=== PATIENT | female | born 1985 | race Caucasian/White ===

== ENCOUNTER 2016-08-23 07:16 | Day surgery (SDC) | payer BC, MEDICAID ==
[2016-08-23] VITALS (14 sets, daily range): BP systolic 90–120; BP diastolic 52–81; PULSE 74–106; RESP 15–20; Ht 172.7 cm; Wt 81.3 kg
[~2016-08-23] VITALS: Ht 172.7 cm; Wt 81.3 kg
[~2016-08-23 07:16] MED LIST: CLINDAMYCIN 600 MG/50 ML D5W IVPB IVPB ONE
--- NOTE | 2016-08-23 07:59 | HPN ---
Date/Time of Note Date/Time of Note DATE: 08/23/16 TIME: 07:55 Interval H&P Admission Note Pt. seen H&P reviewed: No system changes (Please note that the diagnosis for the patient is "right midshaft clavicle fracture". Plan is for open reduction internal fixation of right midshaft clavicle fracture. ) JERAMIE LAURENT Aug 23, 2016 07:58
[2016-08-23] MEDS ORDERED: ALBU8.5H3 INH (08:20)
[2016-08-23] MEDS ORDERED: MOME13HF2 INHALATION (08:20)
[2016-08-23] MEDS ORDERED: IMPLANON (08:20)
[2016-08-23] MEDS ORDERED: PROPOFOL 100 ML ONE (09:10)
[2016-08-23] MEDS ORDERED: ACETAMINOPHEN 1000MG/100ML IV 100 ML ONE (09:10)
[2016-08-23] MEDS ORDERED: ROCURONIUM 50 MG INJ ONE (09:11)
[2016-08-23] MEDS ORDERED: LIDOCAINE 2% (SDV) 5 ML INJ ONE (09:11)
[2016-08-23] MEDS ORDERED: FENTAnyl 50 MCG/ML VIAL ONE (09:12)
[2016-08-23] MEDS ORDERED: MIDAZOLAM 1 MG/ML 2 ML INJ ONE (09:15)
[2016-08-23] MEDS ORDERED: MEPERIDINE 100 MG INJ ONE (09:46)
[2016-08-23] MEDS ORDERED: DEXAMETHASONE 4 MG/ML 1 ML INJ ONE (09:48)
[2016-08-23] MEDS ORDERED: LABETALOL HCL 20MG INJ ONE (09:49)
[2016-08-23] MEDS ORDERED: BUPIVACAINE 0.5% (SDV) 30 ML INJ ONE (09:52)
[2016-08-23] MEDS ORDERED: HYDROmorphONE (0.2 MG/ML) 10ML SYG IV PRN ×2 (10:30)
[2016-08-23] MEDS ORDERED: ONDANSETRON 4 MG INJ IV PRN (10:30)
[2016-08-23] MEDS ORDERED: LABETALOL HCL 20MG INJ IV PRN (10:30)
[2016-08-23] MEDS ORDERED: FENTAnyl 50 MCG/ML VIAL IV PRN ×3 (10:30)
[2016-08-23] MEDS ORDERED: MEPERIDINE 25 MG INJ IV PRN (10:30)
[2016-08-23] MEDS ORDERED: EPHEDrine SULFATE 50 MG/5 ML SYG IV PRN (10:30)
[2016-08-23] MEDS ORDERED: hydrALAzine 20 MG INJ IV PRN (10:30)
[2016-08-23] MEDS ORDERED: VANCOMYCIN 1 GM INJ ONE (10:54)
[2016-08-23] MEDS ORDERED: ONDANSETRON 4 MG INJ ONE (11:11)
[2016-08-23] MEDS: HYDROmorphONE (0.2 MG/ML) 10ML SYG IV PRN ×3 (11:43→11:53)
[2016-08-23] MEDS ORDERED: OXYCODONE/ACETAMINOPHEN (10/325) TAB PO PRN (12:00)
--- NOTE | 2016-08-23 12:50 | RADRPT ---
PROCEDURE: Intraoperative imaging of the right clavicle with fluoroscopy. CLINICAL INDICATION: Right clavicle pain. Intraoperative. TECHNIQUE: 3 images of the right clavicle were obtained in the operating room with an image intens ifier. No radiologist was in attendance. 8.6 seconds of fluoroscopy time was used. COMPARISON: No prior study is available for comparison. FINDINGS: Images demonstrate open reduction and internal fixation of the right clavicle with a plate and multi ple screws. IMPRESSION: 1. Intraoperative imaging of the right clavicle. RPTAT: QQ .Alverto Castaneda MD, MD Date Time Electronically viewed and signed by .Alverto Castaneda MD, on 08/23/2016 12:50 .R/
--- NOTE | 2016-08-23 14:15 | OPR ---
DATE OF OPERATION: 08/23/2016 SURGEON: Jeramie Vallejo MD ANESTHESIA: General. PREOPERATIVE DIAGNOSIS: Right midshaft clavicle fracture. POSTOPERATIVE DIAGNOSIS: Right midshaft clavicle fracture. OPERATION PERFORMED: Open reduction internal fixation of right midshaft clavicle fracture. OPERATIVE FINDINGS: Midshaft clavicle fracture with early callus formation and more than 100% displa cement with a butterfly fragment anteriorly. INDICATIONS FOR PROCEDURE: This is a 30-year-old female who suffered a right shoulder injury. She was seen in clinic and diagnosed with midshaft clavicle fracture. Options were discussed and due to the degree of displacement and shortening, the patient elected to proceed with operative interventi on and understands the risks and benefits. DESCRIPTION OF PROCEDURE: The patient was seen in the preoperative area and all of her questions we re answered. Again, she gave informed consent and understands the risks and benefits. She was take n to the operative suite and placed in supine position. She was placed under general anesthesia and then the back of the operative table was raised 45 degrees. Clindamycin was administered due to th e patient's PENICILLIN ALLERGY and the right upper extremity was prepped with ChloraPrep stick and d raped in the usual sterile fashion. An incision centered over the midshaft clavicle was utilized an d sharp incision carried down through skin and subcutaneous tissue. Further dissection revealed the 3 crossing sensory nerves, and these were protected and identified using a Noah drain. The kely osteum overlying the clavicle was incised sharply and elevated off of the superior aspect of the cla vicle. A butterfly fragment was found anteriorly and was quite displaced and was excised and saved for later placement. The proximal and distal ends were both identified and careful dissection relea sed them from surrounding soft tissue. There was some early callus formation, but this was able to be cleared out with suction and sponge, blunt dissection. The fracture was shortened approximately 3 cm and was brought back out to length with crab claw clamps and then was secured with a pointed re duction clamp. A 3.0 mm lag screw was placed from anterior to posterior to secure the fracture frag ments. The butterfly fragment was placed into the fracture site and was lagged into its appropriate position using a 2.3 mm screw. An Acumed anatomic clavicle plate was placed over the fracture site and a combination of cortical and locking screws were placed. The fracture was quite stable and x- ray imaging confirmed appropriate hardware positioning and a near anatomic alignment of the fracture fragments. The wound was copiously irrigated and 1 gram of vancomycin powder was placed into the w ound. The deep fascial layer and periosteum was closed with 3-0 Vicryl, 3-0 Vicryl was also used f or the deep dermal layer and the skin was closed with 4-0 nylon. Xeroform was placed followed by st erile gauze and Tegaderm. Drapes were taken off and the patient was placed in the supine position. She was awakened from anesthesia and taken to the postoperative suite in stable condition, tolerate d procedure well without complications. SPECIMENS: None. ESTIMATED BLOOD LOSS: 5 mL. SPONGE, INSTRUMENT, NEEDLE COUNTS: Correct. TOURNIQUET TIME: Not applicable. FLUOROSCOPIC IMAGES: Six. CONDITION ON DISCHARGE: Stable. Dictated By: JERAMIE TRENT/CHASE Conf#: [id number] DID#: [id number]
== END 2016-08-23 17:55 | disposition home or self-care (01) ==
LOC: SDS 07:16
PROVIDERS: ATTEND Orthopaedic Surgery Hand Surgery
DX: S42.021A Displaced fracture of shaft of right clavicle, initial encounter for closed fracture (principal); X58.XXXA Exposure to other specified factors, initial encounter; Y92.89 Other specified places as the place of occurrence of the external cause; Y99.8 Other external cause status
CPT/HCPCS: 23515; 73000; 84703; J1100; J1170; J2175; J2250; J2405; J3010; J3370; Z7512; Z7610; J0131